=== PATIENT | male | born 1970 | race Asian ===

== ENCOUNTER 2019-07-05 17:44 | Emergency (ER) | payer OTHER ==
[~2019-07-05] VITALS: Ht 167.6 cm; Wt 68.0 kg
[2019-07-05] MEDS ORDERED: methylPREDNISolone SOD SUCC/PF 62.5 MG/ML VIAL IM ONE (18:00)
[2019-07-05] MEDS ORDERED: IPRATROPIUM/ALBUTEROL SULFATE 3 ML AMPUL.NEB (DUONEB) INH ONE (18:00)
--- NOTE | 2019-07-05 18:09 | NUR ---
Patient to ER bed 8 to gown for evaluation. Side rails up.
--- NOTE | 2019-07-05 18:10 | NUR ---
PT PRESENTS TO ED C/O SOB AND WHEEZING SINCE APPROX 1999 LAST NIGHT.
[2019-07-05] MEDS ORDERED: MAGNESIUM SULFATE 50 ML IV ONE (18:15)
[2019-07-05] MEDS ORDERED: NS 500 ML IV ONE (18:15)
--- NOTE | 2019-07-05 18:15 | NUR ---
ER at bedside examining patient.
--- NOTE | 2019-07-05 18:20 | NUR ---
PT RECEIVING BREATHING TX
--- NOTE | 2019-07-05 19:50 | NUR ---
Pt AAOx4, denies c/o C/P or SOB, no needs verbalized at this time. VSS. Pt states that he feels better after receiving breathing tx. Informed pt that Blood work and medications have been ordered, but pt asks if they are necessary at this time. Dr. Anderson notified and will speak with pt.
--- NOTE | 2019-07-05 20:01 | NUR ---
Specimen collected for influenza antigen and sent to lab.
--- NOTE | 2019-07-05 20:05 | NUR ---
Dr. Anderson at bedside assessing pt.
--- NOTE | 2019-07-05 20:06 | NUR ---
Per Dr. Anderson, pt is to be discharged home and if Influenza tests positive, we will contact pt to notify and call in Rx. Pt refuses medication and blood work.
[2019-07-05 20:12] VITALS: BP_SYST 130
--- NOTE | 2019-07-05 20:12 | NUR ---
Patient given written and verbal discharge instructions and verbalizes understanding. ER MD discussed with patient the results and treatment provided. Patient in stable condition. ID arm band removed. Rx of Prednisone and Albuterol given. Patient educated on pain management and to follow up with PMD. Pain Scale 0/10. Opportunity for questions provided and answered. Medication side effect fact sheet provided.
== END 2019-07-05 20:12 | disposition home or self-care (01) ==
LOC: SED 17:44
DX: R06.03 Acute respiratory distress (principal)
CPT/HCPCS: 71045; 86710; 93005; 94640; 99284; J7620; 36415